=== PATIENT | male | born 1940 | race Two or more races ===

== ENCOUNTER 2022-12-27 04:56 | Emergency (ER) | payer MEDICARE, OTHER ==
[~2022-12-27] VITALS: Ht 165.1 cm; Wt 74.8 kg
--- NOTE | 2022-12-27 08:10 | NUR ---
PT IS ATTEMPTING TO CALL [facility] FOR PICKUP. AAOX4, VITAL SIGNS WITHIN NORMAL LIMITS.
--- NOTE | 2022-12-27 08:21 | NUR ---
SPOKE TO DWAYNE (DAUGHTER) [phone]. I WAS ADVISED THAT FAINA (FRIEND) [phone] WILL COME TAKE AWAY ATTENDANT THE PATIENT. NO ETA GIVEN.
--- NOTE | 2022-12-27 09:46 | NUR ---
CALLED [facility] FOR TRANSPORT ETA 35-40 MINS PER GERALDINE.
--- NOTE | 2022-12-27 11:20 | NUR ---
[facility] AT BEDSIDE FOR PICKUP TO HOME.
--- NOTE | 2022-12-27 11:21 | NUR ---
Patient discharged to home in stable condition. Written and verbal after care instructions given. Patient verbalizes understanding of instruction.
[2022-12-27 12:15] VITALS: BP 138/78
== END 2022-12-27 11:25 | disposition home or self-care (01) ==
LOC: ER 04:59
DX: S00.83XA Contusion of other part of head, initial encounter (principal); G20 Parkinson's disease; W06.XXXA Fall from bed, initial encounter; Y93.89 Activity, other specified; Y92.89 Other specified places as the place of occurrence of the external cause; Y99.8 Other external cause status
CPT/HCPCS: 99284; 72125; 70450; A6403